=== PATIENT | female | born 1985 | race Asian ===

== ENCOUNTER → 2017-01-23 | Outpatient (CLI) | payer BC | END | disposition home or self-care (01) | LOC: C.PAPS 12:22 | PROVIDERS: ATTEND Physician Assistant | DX: Z01.419 Encounter for gynecological examination (general) (routine) without abnormal findings (principal) ==

== ENCOUNTER 2017-10-31 10:58 | Emergency (ER) | payer BC, OTHER ==
[~2017-10-31] VITALS: Ht 157.5 cm; Wt 62.6 kg
[2017-10-31 11:07] VITALS: TEMP 36.8; Ht 157.5 cm; Wt 62.6 kg
[2017-10-31] MEDS ORDERED: IBUPROFEN 200 MG TAB PO STA (11:44)
--- NOTE | 2017-10-31 12:24 | DIAGNOSTIC IMAGING REPORT ---
THORACIC SPINE 3 VIEWS ROUTINE HISTORY: Pain L sided neck pain s/p lifting up neck to stretch COMPARISON: None. FINDINGS: There is no fracture. Mild scoliosis. Disc spaces are preserved. IMPRESSION: Mild scoliosis. Otherwise negative study. The above report was generated using voice recognition software. It may contain grammatical, syntax or spelling errors. Electronically signed by: Yuriy Liu M.D. 10/31/2017 12:23 PM Dictated Date/Time: 10/31/2017 12:23 PM
--- NOTE | 2017-10-31 12:44 | EMERGENCY ROOM VISIT NOTE ---
History First contact with patient: 11:36 Chief Complaint: NECK PAIN Stated Complaint: CAN NOT MOVE BACK/NECK History of Present Illness The patient is a 32 year old female who presents to the Emergency Room with complaints of "cannot move neck/back". The patient states that she woke up this morning, and attempted to stretch her neck. She states that she placed her hands around the base of her head and jaw and gently lifted the head off of the neck. She states that she was stretching she felt/heard something pop and is concerned that she may have damaged something in her neck. She now notes at rest there is minimal pain however she turns her head side to side there is exquisite pain radiates down the left side of her neck beside the left scapula. She rates her overall pain currently as a 10/10. She has never had this happen before. She denies chance of . Review of Systems A complete 6-point Review of Systems was discussed with the patient, with pertinent positives and negatives listed in the History of Present Illness. All remaining Review of Systems questions can be considered negative unless otherwise specified. Past Medical/Surgical History No pertinent. Family History Non contributory Social History Smoking Status: Never Smoker Pt. is a local professor Current/Historical Medications No Active Prescriptions or Reported Meds Physical Exam Vital Signs Date Time Temp Pulse Resp B/P (MAP) Pulse Ox O2 Delivery O2 Flow Rate FiO2 10/31/17 15:01 74 16 122/80 100 10/31/17 11:07 36.8 103 18 124/85 98 Room Air Physical Exam VITAL SIGNS - Vital signs and nursing notes were reviewed. Stable. GENERAL - 32-year-old female appearing her stated age who is in no acute distress. Communicates well with provider and answers questions appropriately. SKIN - Without rashes. Skin overlying neck and scapular region unremarkable. HEAD - NC/AT. EYES - Sclera anicteric. EARS - No deformities of external structures noted on gross examination bilaterally. NOSE - Midline and without cyanosis. No epistaxis or purulent drainage noted. MOUTH/OROPHARYNX - Without perioral cyanosis. NECK - Neck with FROM. Supple to palpation. No nuchal rigidity. Tenderness of the L paraspinal musculature EXTREMITIES - FROM of upper extremities. 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 She is neurovascularly intact in the upper extremities. NEUROLOGIC - Cranial nerves II through XII grossly intact. Sensory intact to light touch throughout. There is tense musculature noted just medial to the left scapula. MUSCULOSKEKETAL: There is tenderness and muscle spasm noted in the patient's left cervical and mid trapezius region on the left. Medical Decision & Procedures ER Provider Diagnostic Interpretation: THORACIC SPINE 3 VIEWS ROUTINE HISTORY: Pain L sided neck pain s/p lifting up neck to stretch COMPARISON: None. FINDINGS: There is no fracture. Mild scoliosis. Disc spaces are preserved. IMPRESSION: Mild scoliosis. Otherwise negative study. The above report was generated using voice recognition software. It may contain grammatical, syntax or spelling errors. Electronically signed by: Yuriy Liu M.D. 10/31/2017 12:23 PM Dictated Date/Time: 10/31/2017 12:[address] OF THE CERVICAL SPINE WITHOUT CONTRAST CLINICAL HISTORY: L sided neck pain s/p lifting up neck to stretch. COMPARISON STUDY: No previous studies for comparison. TECHNIQUE: Helical axial images of the cervical spine were obtained without IV contrast. Sagittal and coronal reconstructions were viewed. A dose lowering technique was utilized adhering to the principles of ALARA. FINDINGS: There is mild rightward tilt of the head with slight leftward curvature of the cervical spine. Alignment is otherwise anatomic. The craniocervical junction is intact. No acute cervical spine fracture is present. There is no suspicious osseous lesion. There is minimal disc space narrowing at C5-C6 and C6-C7 with moderate osteophytosis. Central canal and neural foramen are suboptimally assessed given CT technique. There is no prevertebral edema. IMPRESSION: 1. No acute cervical spine fracture or subluxation. 2. Mild disc space narrowing and osteophytosis at C5-C6 and C6-C7. Suboptimal evaluation of central canal and neural foramen given CT technique. Electronically signed by: Fady Orellana M.D. 10/31/2017 2:25 PM Dictated Date/Time: 10/31/2017 2:15 PM Medications Administered Medications (Trade) Dose Ordered Sig/Franko Route Start Time Stop Time Status Last Admin Dose Admin Ibuprofen (Advil Tab) 400 mg NOW STAT PO 10/31/17 11:44 10/31/17 11:45 DC 10/31/17 11:49 400 MG Medical Decision Patient was seen and evaluated as above. She presents to us today with neck pain status post lifting her head off of her shoulders to stretch her neck. She heard a pop. She is nontoxic in appearance, well on exam and is hemodynamically stable. Her pain is not in any of the important vasculature of the neck. It is posterior in the musculature. I suspect she likely had strained a muscle in the neck and now it is in a spasm. She was given ibuprofen for pain. Benefit versus risk of obtaining imaging was discussed. Decision was made to obtain a CT scan of the neck as well as thoracic plain radiograph. Results as above. No acute fracture or dislocation. I suspect again muscle spasm. She has no neurologic or vascular deficit of the upper extremities. She notes no pain at rest it is only with movement of the neck. Is reproducible with movement and palpation. She is to follow with family doctor or hydramatic specialist in the area depending upon her persistence of pain. She is to return with worrisome symptoms as we discussed. She was educated upon management, had questions answered prior to discharge, and was discharged home in good condition. In the evaluation and treatment of this patient, the following differential diagnoses were considered: Musculoskeletal Strain, Discitis, Cervical Spine Fracture, Cervical Spine Dislocation, Cervical Spine Subluxation, Cervical Spondylosis, Fibromyalgia, Osteoarthritis, Polymyalgia Rheumatica, Psychogenic Pain Disorder, Tumor of Soft Tissue or Spine. Impression Primary Impression: Trapezius muscle strain Departure Information Dispostion Home / Self-Care Condition GOOD Prescriptions No Active Prescriptions or Reported Meds Referrals No Doctor, Assigned (PCP) Colby Johnson, DO Patient Instructions My [facility] Additional Instructions You have been treated in the Emergency Department for pain in the left side of your neck and back. For pain control, you can use the following [id number] medicines : - Regular strength (325mg/tab) Tylenol (acetaminophen) 2 tabs every 4-6 hours as needed. Do not exceed 12 tablets in a 24 hour period. Avoid taking more than 3 grams (3000 mg) of Tylenol per day. This includes any other sources of acetaminophen you may take on a regular basis. - Regular strength (200 mg/tab) Advil (ibuprofen) 1-2 tabs every 4-6 hours as needed. Do not exceed a dose of 3200 mg per day. If this is an acute injury, ice can be applied to the area of pain for the first 3 days to help decrease pain and inflammation. After the first 3 days, a heating pad can be used over the area for continued soothing relief. You should schedule a follow-up appointment in 2-3 days with your Primary Care Provider for further evaluation and treatment of your back pain. (Dr. Johnson) Return to the Emergency Department if your current symptoms worsen despite treatment course outlined above, or if you develop any of the following symptoms : intractable pain despite aforementioned treatment course, loss of control of your bowel or bladder, numbness or tingling in your groin, or development of a fever. As we discussed if you experience numbness in her arms or any new/concerning symptoms please return. THORACIC SPINE 3 VIEWS ROUTINE HISTORY: Pain L sided neck pain s/p lifting up neck to stretch COMPARISON: None. FINDINGS: There is no fracture. Mild scoliosis. Disc spaces are preserved. IMPRESSION: Mild scoliosis. Otherwise negative study. The above report was generated using voice recognition software. It may contain grammatical, syntax or spelling errors. Electronically signed by: Yuriy Liu M.D. 10/31/2017 12:23 PM Dictated Date/Time: 10/31/2017 12:[address] OF THE CERVICAL SPINE WITHOUT CONTRAST CLINICAL HISTORY: L sided neck pain s/p lifting up neck to stretch. COMPARISON STUDY: No previous studies for comparison. TECHNIQUE: Helical axial images of the cervical spine were obtained without IV contrast. Sagittal and coronal reconstructions were viewed. A dose lowering technique was utilized adhering to the principles of ALARA. FINDINGS: There is mild rightward tilt of the head with slight leftward curvature of the cervical spine. Alignment is otherwise anatomic. The craniocervical junction is intact. No acute cervical spine fracture is present. There is no suspicious osseous lesion. There is minimal disc space narrowing at C5-C6 and C6-C7 with moderate osteophytosis. Central canal and neural foramen are suboptimally assessed given CT technique. There is no prevertebral edema.
--- NOTE | 2017-10-31 14:27 | DIAGNOSTIC IMAGING REPORT ---
CT OF THE CERVICAL SPINE WITHOUT CONTRAST CLINICAL HISTORY: L sided neck pain s/p lifting up neck to stretch. COMPARISON STUDY: No previous studies for comparison. TECHNIQUE: Helical axial images of the cervical spine were obtained without IV contrast. Sagittal and coronal reconstructions were viewed. A dose lowering technique was utilized adhering to the principles of ALARA. FINDINGS: There is mild rightward tilt of the head with slight leftward curvature of the cervical spine. Alignment is otherwise anatomic. The craniocervical junction is intact. No acute cervical spine fracture is present. There is no suspicious osseous lesion. There is minimal disc space narrowing at C5-C6 and C6-C7 with moderate osteophytosis. Central canal and neural foramen are suboptimally assessed given CT technique. There is no prevertebral edema. IMPRESSION: 1. No acute cervical spine fracture or subluxation. 2. Mild disc space narrowing and osteophytosis at C5-C6 and C6-C7. Suboptimal evaluation of central canal and neural foramen given CT technique. Electronically signed by: Fady Orellana M.D. 10/31/2017 2:25 PM Dictated Date/Time: 10/31/2017 2:15 PM
[2017-10-31 15:01] VITALS: BP 122/80; PULSE 74; O2SAT 100
== END 2017-10-31 15:03 | disposition home or self-care (01) ==
LOC: C.EDB 11:00 → C.EDD 15:03
DX: S46.912A Strain of unspecified muscle, fascia and tendon at shoulder and upper arm level, left arm, initial encounter (principal); X58.XXXA Exposure to other specified factors, initial encounter